=== PATIENT | female | born 1995 | race Caucasian/White ===

== ENCOUNTER → 2017-01-04 09:29 | Outpatient (CLI) | payer BC ==
[2014-08-06 07:48] VITALS: BMI 21.2
[~2017-01-04 09:29] MED LIST: ACETAMINOPHEN500 M1 PO; IBUPROFEN600 MG PO; LAMICTAL100 MG PO; LEVAQUIN500 MG PO; NORCO 7.5/325 T1 TA1 PO; TYLENOL650 MG RC
== END | disposition home or self-care (01) ==
LOC: D.CT 09:29
DX: R59.9 Enlarged lymph nodes, unspecified (principal)

== ENCOUNTER 2017-01-04 11:17 | Emergency (ER) | payer BC ==
[2014-08-06 07:48] VITALS: BMI 21.2
== END 2017-01-04 15:19 | disposition home or self-care (01) ==
LOC: D.ER 11:17
DX: R07.89 Other chest pain (principal); F41.9 Anxiety disorder, unspecified; F39 Unspecified mood [affective] disorder; G25.81 Restless legs syndrome; R59.9 Enlarged lymph nodes, unspecified

== ENCOUNTER 2017-04-05 11:20 | Emergency (ER) | payer BC ==
[2014-08-06 07:48] VITALS: BMI 21.2
[2017-04-05 13:19] LABS: BASOPHILS 0.6 % (0-2); EOSINOPHILS 1.5 % (0-7); HEMATOCRIT 31.6 % (36.0-48.0); LYMPHOCYTES 26.9 % (15-50); MCH 20.2 pg (26.0-34.0); MCHC 28.5 g/dL (31.0-37.0); MCV 70.9 fL (80.0-100.0); MEAN PLATELET VOLUME 11.3 fL (7.4-10.4); MONOCYTES 11.2 % (2-11); NEUTROPHILS 59.8 % (40-80); PLATELET COUNT 287 10x3/uL (130-400); RBC 4.46 10x6/uL (4.00-5.40); RDW 17.1 % (11.5-14.5); WBC 4.7 10x3/uL (4.8-10.8)
[2017-04-05 13:40] LABS: ALBUMIN 3.6 g/dL (3.4-5.0); ALKALINE PHOSPHATASE 62 U/L (46-116); ALT (SGPT) 19 U/L (10-68); BILIRUBIN - TOTAL 0.21 mg/dL (0.2-1.3); CALC OSMOLALITY 278 mosm/kg (275-300); CALCIUM 8.8 mg/dL (8.5-10.1); CHLORIDE - SERUM 106 mmol/L (98-107); CREATININE - SERUM 0.7 mg/dL (0.6-1.3); GLUCOSE 100 mg/dL (74-106); POTASSIUM - SERUM 3.7 mmol/L (3.5-5.1); PROTEIN - SERUM 6.9 g/dL (6.4-8.2); SODIUM 141 mmol/L (136-145); UREA NITROGEN 8 mg/dL (7-18); eGFR NON AFRICAN AMERICAN > 90 mL/min (90-120)
[2017-04-05 17:00] LABS: APPEARANCE HAZY (CLEAR); BILIRUBIN NEGATIVE (NEGATIVE); COLOR YELLOW (YELLOW); GLUCOSE NEGATIVE (NEGATIVE); KETONE NEGATIVE (NEGATIVE); LEUKOCYTE ESTERASE 2+ (NEGATIVE); NITRITE POSITIVE (NEGATIVE); PROTEIN TRACE mg/dL (NEGATIVE); UROBILINOGEN NORMAL (NORMAL); WHITE CELLS - URINE >50 /hpf (0-5)
[2017-04-05 17:01] LABS: RED CELLS - URINE 0-5 /hpf (0-5)
[2017-04-05 17:02] LABS: BACTERIA MANY /hpf (NONE SEEN); EPITHELIAL CELLS 0-5 /hpf (0-5)
[2017-04-05 17:04] LABS: HCG URINE NEGATIVE (NEGATIVE)
[2017-04-05 17:39] LABS: MONO NEGATIVE (NEGATIVE)
[2017-04-07 15:22] LABS: EBV - EARLY ANTIGEN AB IGG <9.0 U/mL (0.0-8.9); EBV VIRAL CAPSID AB IGG >600.0 U/mL (0.0-17.9); EBV VIRAL CAPSID AB IGM <36.0 U/mL (0.0-35.9)
== END 2017-04-05 18:31 | disposition home or self-care (01) ==
LOC: D.ER 11:20
PROVIDERS: Emergency Medicine; Nurse Practitioner Family
DX: N39.0 Urinary tract infection, site not specified (principal); M25.50 Pain in unspecified joint; T14.8 Other injury of unspecified body region; X58.XXXA Exposure to other specified factors, initial encounter; Y93.89 Activity, other specified; Y92.89 Other specified places as the place of occurrence of the external cause; R59.0 Localized enlarged lymph nodes; F41.9 Anxiety disorder, unspecified; F39 Unspecified mood [affective] disorder; G25.81 Restless legs syndrome; E03.9 Hypothyroidism, unspecified; F17.200 Nicotine dependence, unspecified, uncomplicated

== ENCOUNTER 2017-04-11 14:56 | Emergency (ER) | payer BC ==
[2014-08-06 07:48] VITALS: BMI 21.2
[2017-04-11 19:31] LABS: HCG URINE NEGATIVE (NEGATIVE)
[2017-04-11 19:37] LABS: APPEARANCE CLEAR (CLEAR); BILIRUBIN NEGATIVE (NEGATIVE); COLOR STRAW (YELLOW); GLUCOSE NEGATIVE (NEGATIVE); KETONE NEGATIVE (NEGATIVE); LEUKOCYTE ESTERASE NEGATIVE (NEGATIVE); NITRITE NEGATIVE (NEGATIVE); PROTEIN NEGATIVE (NEGATIVE); UROBILINOGEN NORMAL (NORMAL)
[2017-04-11 19:38] LABS: BACTERIA FEW /hpf (NONE SEEN); MUCUS <1+ /lpf (NONE SEEN); RED CELLS - URINE RARE /hpf (0-5); WHITE CELLS - URINE 0-5 /hpf (0-5)
== END 2017-04-11 20:16 | disposition home or self-care (01) ==
LOC: D.ER 14:56
PROVIDERS: Emergency Medicine
DX: M79.1 Myalgia (principal); B27.90 Infectious mononucleosis, unspecified without complication; E03.9 Hypothyroidism, unspecified; F39 Unspecified mood [affective] disorder; G25.81 Restless legs syndrome

== ENCOUNTER 2017-04-18 14:16 | Emergency (ER) | payer BC ==
[2014-08-06 07:48] VITALS: BMI 21.2
[2017-04-18 16:05] LABS: BASOPHILS 0.6 % (0-2); EOSINOPHILS 1.6 % (0-7); HEMATOCRIT 30.9 % (36.0-48.0); HEMOGLOBIN 8.8 g/dL (12-16); MCH 20.3 pg (26.0-34.0); MCHC 28.5 g/dL (31.0-37.0); MCV 71.2 fL (80.0-100.0); MEAN PLATELET VOLUME 10.8 fL (7.4-10.4); MONOCYTES 7.3 % (2-11); NEUTROPHILS 48.5 % (40-80); PLATELET COUNT 319 10x3/uL (130-400); RBC 4.34 10x6/uL (4.00-5.40); RDW 16.7 % (11.5-14.5); WBC 4.9 10x3/uL (4.8-10.8)
[2017-04-18 16:26] LABS: ALBUMIN 3.6 g/dL (3.4-5.0); ALKALINE PHOSPHATASE 70 U/L (46-116); ALT (SGPT) 19 U/L (10-68); BILIRUBIN - TOTAL 0.27 mg/dL (0.2-1.3); CALC OSMOLALITY 275 mosm/kg (275-300); CALCIUM 8.5 mg/dL (8.5-10.1); CARBON DIOXIDE 26.4 mmol/L (21.0-32.0); CHLORIDE - SERUM 105 mmol/L (98-107); CREATININE - SERUM 0.6 mg/dL (0.6-1.3); GLUCOSE 88 mg/dL (74-106); LIPASE 139 U/L (73-393); POTASSIUM - SERUM 3.8 mmol/L (3.5-5.1); PROTEIN - SERUM 6.9 g/dL (6.4-8.2); SODIUM 139 mmol/L (136-145); UREA NITROGEN 10 mg/dL (7-18); eGFR NON AFRICAN AMERICAN > 90 mL/min (90-120)
[2017-04-18 16:36] LABS: APPEARANCE CLEAR (CLEAR); BILIRUBIN NEGATIVE (NEGATIVE); COLOR YELLOW (YELLOW); GLUCOSE NEGATIVE (NEGATIVE); KETONE NEGATIVE (NEGATIVE); LEUKOCYTE ESTERASE TRACE (NEGATIVE); NITRITE NEGATIVE (NEGATIVE); PROTEIN NEGATIVE (NEGATIVE); SPECIFIC GRAVITY 1.015 (1.005-1.020); UROBILINOGEN NORMAL (NORMAL)
[2017-04-18 16:38] LABS: BACTERIA MODERATE /hpf (NONE SEEN); EPITHELIAL CELLS 0-5 /hpf (0-5); RED CELLS - URINE 0-5 /hpf (0-5)
== END 2017-04-18 17:15 | disposition home or self-care (01) ==
LOC: D.ER 14:16
PROVIDERS: Emergency Medicine
DX: R10.9 Unspecified abdominal pain (principal); F41.9 Anxiety disorder, unspecified

== ENCOUNTER → 2018-02-24 13:11 | Outpatient (CLI) | payer BC ==
[2014-08-06 07:48] VITALS: BMI 21.2
== END | disposition home or self-care (01) ==
LOC: D.US 13:11
DX: N83.209 Unspecified ovarian cyst, unspecified side (principal)

== ENCOUNTER → 2021-03-28 09:22 | Outpatient (CLI) | payer BC ==
[2014-08-06 07:48] VITALS: BMI 21.2
[~2021-03-28 09:22] MED LIST changes: +HYDROCODON-ACE1 EA10 PO; +ZOFRAN ODT4 MG/UDTAB PO
== END | disposition home or self-care (01) ==
LOC: D.CT 03-27 13:00
PROVIDERS: ATTEND Family Medicine
DX: R10.9 Unspecified abdominal pain (principal)

== ENCOUNTER 2021-03-30 15:44 | Emergency (ER) | payer SELFPAY ==
[~2021-03-30] VITALS: Ht 170.2 cm; Wt 65.5 kg
[~2021-03-30 15:44] MED LIST changes: -HYDROCODON-ACE1 EA10 PO; -ZOFRAN ODT4 MG/UDTAB PO
[2021-03-30 15:47] VITALS: Ht 170.2 cm; Wt 65.5 kg
[2021-03-30 16:55] LABS: BASOPHILS 0.6 % (0-2); EOSINOPHILS 1.2 % (0-7); HEMATOCRIT 41.7 % (36.0-48.0); LYMPHOCYTES 27.2 % (15-50); MCH 28.6 pg (26.0-34.0); MCHC 33.7 g/dL (31.0-37.0); MEAN PLATELET VOLUME 9.7 fL (7.4-10.4); MONOCYTES 4.4 % (2-11); NEUTROPHILS 66.6 % (40-80); PLATELET COUNT 256 10x3/uL (130-400); RBC 4.91 10x6/uL (4.00-5.40); RDW 12.7 % (11.5-14.5); WBC 8.7 10x3/uL (4.8-10.8)
[2021-03-30 17:12] LABS: CALC OSMOLALITY 268 mosm/kg (275-300); CALCIUM 8.7 mg/dL (8.5-10.1); CARBON DIOXIDE 28.1 mmol/L (21.0-32.0); CHLORIDE - SERUM 102 mmol/L (98-107); CREATININE - SERUM 0.7 mg/dL (0.6-1.3); GLUCOSE 91 mg/dL (74-106); POTASSIUM - SERUM 3.5 mmol/L (3.5-5.1); SODIUM 135 mmol/L (136-145); UREA NITROGEN 10 mg/dL (7-18); eGFR NON AFRICAN AMERICAN > 90 mL/min (90-120)
[2021-03-30 17:19] LABS: ALBUMIN 3.7 g/dL (3.4-5.0); ALKALINE PHOSPHATASE 73 U/L (30-120); ALT (SGPT) 20 U/L (10-68); BILIRUBIN - TOTAL 0.27 mg/dL (0.2-1.3); LIPASE 122 U/L (73-393); PROTEIN - SERUM 7.4 g/dL (6.4-8.2)
[2021-03-30 17:38] LABS: BILIRUBIN NEGATIVE (NEGATIVE); KETONE NEGATIVE (NEGATIVE); NITRITE NEGATIVE (NEGATIVE); UROBILINOGEN NORMAL mg/dL (< 2)
[2021-03-30 17:39] LABS: BACTERIA FEW HPF (NONE SEEN); SQUAMOUS EPITHELIAL OCC HPF (0-4); WHITE CELLS - URINE 0-5 HPF (0-4)
[2021-03-30 18:04] LABS: HCG URINE NEGATIVE (NEGATIVE)
[2021-03-30] MEDS ORDERED: ZOFRAN ODT4 MG/UDTAB PO (20:33)
[2021-03-30] MEDS ORDERED: HYDROCODON-ACE1 EA10 PO (20:35)
[2021-03-30 20:55] VITALS: BP 117/70
== END 2021-03-30 20:55 | disposition home or self-care (01) ==
LOC: D.ER 15:44
PROVIDERS: Emergency Medicine
DX: N83.201 Unspecified ovarian cyst, right side (principal); R10.31 Right lower quadrant pain